=== PATIENT | female | born 1975 | race Caucasian/White ===

== ENCOUNTER → 2017-06-10 09:34 | Outpatient (CLI) | payer SELFPAY ==
[2017-06-10 11:30] LABS: AST(SGOT) 17 U/L (15-37); Alanine Aminotransfer ALT/SGPT 22 U/L (13-56); Albumin, Serum 3.7 g/dL (3.2-5.0); Alkaline Phosphatase 55 U/L (45-117); Bilirubin, Direct 0.11 mg/dL (0.00-0.30); Cholesterol 197 mg/dL (200); High Density Lipoprotein 52 mg/dL; Protein, Total 7.7 g/dL (6.4-8.2); Triglycerides 83 mg/dL; Very Low Density Lipoprotein 17 mg/dL (5-40)
== END ==
PROVIDERS: Family Provider Family Medicine; PCP Family Medicine; Visit Provider Family Medicine
DX: Z00.00 Encounter for general adult medical examination without abnormal findings (principal)
CPT/HCPCS: 36415; 80061; 80076

== ENCOUNTER → 2017-06-24 09:22 | Outpatient (CLI) | payer SELFPAY ==
[2017-06-24 11:04] LABS: Cholesterol 152 mg/dL (200); Glucose 89 mg/dL (74-106); High Density Lipoprotein 43 mg/dL; Triglycerides 69 mg/dL
[2017-06-24 11:05] LABS: Very Low Density Lipoprotein 14 mg/dL (5-40)
== END ==
PROVIDERS: Family Provider Family Medicine; PCP Family Medicine; Visit Provider Family Medicine
DX: Z00.00 Encounter for general adult medical examination without abnormal findings (principal)
CPT/HCPCS: 36415; 80061; 82947